=== PATIENT | male | born 1940 | race Caucasian/White ===

== ENCOUNTER 2024-03-29 07:38 | Outpatient (CLI) | payer MEDICARE ==
[~2024-03-29 07:38] MED LIST: ALBU8.5H17 INH; ASCO125T PO; ATOR10TA70 PO; DUTA0.5C36 PO; GLIP5TAB23 PO; INSU100V9 SQ; IRON150C13 PO; LISI20TA28 PO
== END 2024-03-29 23:59 | disposition home or self-care (01) ==
LOC: VAS 07:38
PROVIDERS: ATTEND Specialist
DX: I12.9 Hypertensive chronic kidney disease with stage 1 through stage 4 chronic kidney disease, or unspecified chronic kidney disease (principal); N18.4 Chronic kidney disease, stage 4 (severe); D63.1 Anemia in chronic kidney disease
CPT/HCPCS: 76770; 93975